=== PATIENT | female | born 2000 | race Caucasian/White ===

== ENCOUNTER 2022-05-07 09:09 | Emergency (ER) | payer OTHER ==
[~2022-05-07 09:09] MED LIST: EPIPEN0.3 MG/0.3 IJ; MEDROL 4MG DOSEP4 MG PO; PEPCID AC20 MG PO
[2022-05-07 11:41] LABS: BASOPHIL 0.6 % (0-2); LYMPHOCYTE 21.9 % (15-48); MCH 29.7 pg (25.0-31.0); MCHC 32.6 g/dL (32.0-36.0); MCV 91.1 fL (78.0-100.0); MONOCYTE 5.8 % (0-12); MPV 10.4 fL (6.0-9.5); NEUTROPHIL 69.2 % (41-80); NRBC 0; PLT 270 K/uL (150-400); RBC 4.72 M/uL (4.20-5.40); RDW 11.9 % (11.5-14.0); WBC 8.4 K/uL (4.0-10.5)
[2022-05-07 12:33] LABS: ALBUMIN 3.8 g/dL (3.4-5.0); BUN/CREAT RATIO (CALC) 16.2 RATIO; CREATININE 0.68 mg/dL (0.51-0.95); GLOBULIN (CALCULATION) 3.7 g/dL; MAGNESIUM 2.1 mg/dL (1.8-2.4); POTASSIUM 3.8 mmol/L (3.5-5.1); TOTAL PROTEIN 7.5 g/dL (6.4-8.2)
[2022-05-07 12:42] LABS: BILIRUBIN NEGATIVE (NEGATIVE); BLOOD 1+ Ery/uL (NEGATIVE); CLARITY CLEAR (CLEAR); COLOR YELLOW (YELLOW); GLUCOSE (U) NORMAL (NORMAL); LEUKOCYTES NEGATIVE Leu/uL (NEGATIVE); NITRITE NEGATIVE (NEGATIVE); PROTEIN NEGATIVE (NEGATIVE); SPECIFIC GRAVITY 1.015 (1.001-1.030); UROBILINOGEN 0.2 mg/dL (0.2-1.0)
[2022-05-07 12:44] LABS: IRON % SATURATION 18.8 %SAT (20-50)
[2022-05-07 12:51] LABS: HCG (URINE) SCREEN NEGATIVE (NEGATIVE)
[2022-05-07 13:09] LABS: BACTERIA 1+; URINARY RBC RARE
== END 2022-05-07 14:57 | disposition home or self-care (01) ==
LOC: FER 09:09
PROVIDERS: Emergency Medicine
DX: R55 Syncope and collapse (principal); S01.01XA Laceration without foreign body of scalp, initial encounter; F41.9 Anxiety disorder, unspecified; E61.1 Iron deficiency; Z91.013 Allergy to seafood; W19.XXXA Unspecified fall, initial encounter; Y92.89 Other specified places as the place of occurrence of the external cause
CPT/HCPCS: 36415; 70450; 80053; 81001; 83540; 83550; 83735; 84703; 85025; 93005